=== PATIENT | female | born 1960 | race Caucasian/White ===

== ENCOUNTER → 2020-09-21 | Day surgery (SDC) | payer OTHER ==
[~2020-09-21] MED LIST: AMITRIPTYLINE100 MG PO; ARNUITY ELLIPT50 MCG INH; ATORVASTATIN CA10 MG PO; BACLOFEN10 MG PO; BUT/APAP/CAF PO; CETIRIZINE HCL10 MG PO; CYCLOBENZAPRINE10 MG PO; DICLOFENAC SOD100 GM TP; DOCUSATE SODIU100 MG PO; DOK100 MG PO; DULOXETINE HCL60 MG PO; ELIQUIS2.5 MG PO; ENDOCET 10-3251 EACH PO; ESCITALOPRAM OX10 MG PO; FEOSOL325 MG PO; FERROUS SULFAT325 MG PO; FLONASE 0.05% N16 GM; FOLIC ACID1 MG PO; GABAPENTIN600 MG PO; GEMFIBROZIL600 MG PO; HYDROCODON-ACE1 EAC6 PO; IBU600 MG PO; IBUPROFEN600 MG PO; LEVOTHYROXINE100 MC2 PO; LEVOXYL100 MCG PO; LIPITOR TAB 1010 MG PO; LOPID600 MG PO; OMEPRAZOLE20 M2 PO; OMEPRAZOLE20 MG PO; PHENTERMINE H37.5 M1 PO; PHENTERMINE H37.5 MG PO; PREMARIN VAG CR30 GM PV; PREMARIN0.625 MG PO; ROPINIROLE HCL1 MG PO; VENTOLIN HFA 66.7 GM INH
== END | disposition home or self-care (01) ==
LOC: OR 06:50
DX: K63.89 Other specified diseases of intestine (principal); K64.0 First degree hemorrhoids; E66.01 Morbid (severe) obesity due to excess calories; E78.00 Pure hypercholesterolemia, unspecified; M19.90 Unspecified osteoarthritis, unspecified site; M79.7 Fibromyalgia; E03.9 Hypothyroidism, unspecified; Z82.49 Family history of ischemic heart disease and other diseases of the circulatory system; Z88.2 Allergy status to sulfonamides; Z83.3 Family history of diabetes mellitus; Z90.49 Acquired absence of other specified parts of digestive tract; Z68.34 Body mass index [BMI] 34.0-34.9, adult; Z20.822 Contact with and (suspected) exposure to COVID-19
CPT/HCPCS: J2704; J7040

== ENCOUNTER → 2020-10-28 | Outpatient (CLI) | payer OTHER ==
[2020-10-28 08:51] LABS: HEMOGLOBIN 13.7 gm/dl (12.3-15.3); RED BLOOD COUNT 4.98 M/UL (4.00-5.10); WHITE BLOOD COUNT 12.1 K/UL (4.5-11.0)
[2020-10-28 09:06] LABS: BUN/CREATININE RATIO 20 (0-10)
== END ==
LOC: EDSTATUS 08:00 → OPSV2 08:00
PROVIDERS: Orthopaedic Surgery
DX: Z01.818 Encounter for other preprocedural examination (principal); M17.12 Unilateral primary osteoarthritis, left knee; R00.1 Bradycardia, unspecified
CPT/HCPCS: 36415; 80048; 81001; 85025; 86140; 87081; 93005

== ENCOUNTER → 2020-11-02 | Outpatient (CLI) | payer OTHER | LOC: LAB 13:18 | PROVIDERS: Orthopaedic Surgery | DX: Z01.812 Encounter for preprocedural laboratory examination (principal); M17.12 Unilateral primary osteoarthritis, left knee | CPT/HCPCS: 36415; 80048; 86850; 86900; 86901 ==

== ENCOUNTER 2020-11-03 08:02 | Inpatient (IN) | payer OTHER ==
[~2020-11-03] VITALS: Ht 162.6 cm; Wt 88.5 kg
[~2020-11-03 08:02] MED LIST changes: -ATORVASTATIN CA10 MG PO; -CETIRIZINE HCL10 MG PO; -ELIQUIS2.5 MG PO; -ENDOCET 10-3251 EACH PO; -FERROUS SULFAT325 MG PO; -GEMFIBROZIL600 MG PO; -IBUPROFEN600 MG PO; -LEVOXYL100 MCG PO; -OMEPRAZOLE20 MG PO; -PHENTERMINE H37.5 M1 PO
[2020-11-03] MEDS ORDERED: CETIRIZINE HCL10 MG PO (10:29)
[2020-11-03] MEDS ORDERED: AMITRIPTYLINE100 MG PO (10:30)
[2020-11-03] MEDS ORDERED: ATORVASTATIN CA10 MG PO (10:30)
[2020-11-03] MEDS ORDERED: BACLOFEN10 MG PO (10:31)
[2020-11-03] MEDS ORDERED: ESCITALOPRAM OX10 MG PO (10:33)
[2020-11-03] MEDS ORDERED: DULOXETINE HCL60 MG PO (10:33)
[2020-11-03] MEDS ORDERED: FERROUS SULFAT325 MG PO (10:34)
[2020-11-03] MEDS ORDERED: LEVOXYL100 MCG PO (10:35)
[2020-11-03] MEDS ORDERED: IBUPROFEN600 MG PO (10:35)
[2020-11-03] MEDS ORDERED: OMEPRAZOLE20 MG PO (10:36)
[2020-11-03] MEDS ORDERED: ROPINIROLE HCL1 MG PO (10:38)
[2020-11-03] MEDS ORDERED: CYCLOBENZAPRINE10 MG PO (10:39)
[2020-11-03] MEDS ORDERED: FOLIC ACID1 MG PO (10:40)
[2020-11-03] MEDS ORDERED: GEMFIBROZIL600 MG PO (10:41)
[2020-11-03] MEDS ORDERED: HYDROCODON-ACE1 EAC6 PO (10:42)
[2020-11-03] MEDS ORDERED: GABAPENTIN600 MG PO (10:43)
[2020-11-03] MEDS ORDERED: PHENTERMINE H37.5 M1 PO (10:43)
[2020-11-03] MEDS ORDERED: ENDOCET 10-3251 EACH PO (12:54)
[2020-11-03] MEDS ORDERED: ELIQUIS2.5 MG PO (12:54)
[2020-11-04 03:32] LABS: HEMOGLOBIN 12.3 gm/dl (12.3-15.3); RED BLOOD COUNT 4.5 M/UL (4.00-5.10); WHITE BLOOD COUNT 14.8 K/UL (4.5-11.0)
[2020-11-04 03:52] LABS: BUN/CREATININE RATIO 18 (0-10)
[2020-11-05 03:40] LABS: HEMOGLOBIN 11.1 gm/dl (12.3-15.3); RED BLOOD COUNT 4.09 M/UL (4.00-5.10); WHITE BLOOD COUNT 16.6 K/UL (4.5-11.0)
[2020-11-05 04:12] LABS: BUN/CREATININE RATIO 17 (0-10)
[2020-11-06 04:52] LABS: HEMOGLOBIN 11.2 gm/dl (12.3-15.3); RED BLOOD COUNT 4.07 M/UL (4.00-5.10); WHITE BLOOD COUNT 14.5 K/UL (4.5-11.0)
[2020-11-06 05:12] LABS: BUN/CREATININE RATIO 17 (0-10)
--- NOTE | 2020-11-08 12:24 | NUR ---
INSTRUCTED IMPORTANCE OF KEEPING FOLLOW UP APPOINTMENT, STOP HOME PAIN MEDS NEW SCRIPTS TO BE PICKED UP AT [facility] . HOME HEALTH TO COME TO HOME. VERBALIZED UNDERSTANDING. Anjelica SORIANO.
== END 2020-11-08 14:01 | disposition home or self-care (01) | DRG 470 ==
LOC: OR 08:02 → EDSTATUS 12:45 → M/S 14:10 → OR 11-05 10:57 → M/S 11-05 10:58
PROVIDERS: ADMIT Orthopaedic Surgery
PROC: 0SRD0J9 Replacement of Left Knee Joint with Synthetic Substitute, Cemented, Open Approach (ICD-10-PCS; principal; 2020-11-05)
DX: M17.12 Unilateral primary osteoarthritis, left knee (principal); E78.5 Hyperlipidemia, unspecified; K21.9 Gastro-esophageal reflux disease without esophagitis; M79.7 Fibromyalgia; Z82.49 Family history of ischemic heart disease and other diseases of the circulatory system; Z83.3 Family history of diabetes mellitus; Z84.89 Family history of other specified conditions; Z90.49 Acquired absence of other specified parts of digestive tract; Z88.2 Allergy status to sulfonamides; Z56.0 Unemployment, unspecified; Z98.890 Other specified postprocedural states; Z79.899 Other long term (current) drug therapy
CPT/HCPCS: 36415; 73560; 80048; 85027; 97110; 97116-GP-CQ; 97162; 97166; 97530-GP-CQ; 97535; C1776; J0690; J1100; J1885; J2270; J2405; J2704; J2795; J3010; J7120